=== PATIENT | male | born 2000 | race Caucasian/White ===

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

== ENCOUNTER 2024-11-12 10:59 | Outpatient (CLI) | payer BC, SELFPAY ==
--- NOTE | 2024-11-12 11:02 | XR_ITS ---
FINAL REPORT CLINICAL HISTORY: pain FINDINGS: Two views of the right hand were obtained. There is no prior exam for comparison. There is no acute fracture or dislocation. The joint spaces are well preserved. There is no acute soft tissue abnormality. IMPRESSION: No acute abnormality identified. Reviewed, Interpreted and Dictated by Ronak Doss MD Transcribed by Clarisse Mack Authenticated and [facility]
--- NOTE | 2024-11-12 11:02 | XR_ITS ---
FINAL REPORT CLINICAL HISTORY: R wrist pain COMPARISON: None FINDINGS: RIGHT WRIST Three views demonstrate no acute fracture or dislocation. The visualized joint spaces are normally aligned. The soft tissues are unremarkable. IMPRESSION: No acute bony abnormality. Reviewed, Interpreted and Dictated by Ronak Doss MD Transcribed by Clarisse Mack Authenticated and . [facility]
--- OUTSIDE RECORDS SUMMARY | 2024-11-12 11:02 | XMS_ITS | Clinical Summary ---
Author Organization [facility] Address [address] [place] [address] Care Team Providers Care Jinriksha Driver Name Role Phone HenryJuli KARLEY Primary Care Provider Social History Tobacco Use Types Packs/Day Years Used Date Smoking Tobacco: Never Assessed Abuse Screen Answer Date Recorded Unsafe at Home or Work/School Not on file Feels Threatened by Someone? Not on file 11/2022 Does Anyone Keep You from Co ntacting Others or Doint Things Outside the Home? Not on file 01/03/2023 Physical Sign of Abuse Present Not on file 1 Housing Stability Answer Date Recorded Current Living Arrangements Not on file 11/2022 Potentially Unsafe Housing Conditions Not on lidya e 01/03/2023 Family and Community Support Answer Dong e Recorded Help with Day-to-Day Activities Not on file 01/03/2023 Lonely or Isolated Not on file 01/03/2023 Employment Answer Date Recorded Do you want help finding or keeping work or a segun b? Not on file 01/03/2023 Disabilities Answer Date Recorded Concentrating, Remembering, or Making Decisions Difficulty Not on file 01/03/2023 Doing Errands Independently Difficulty Not on fi le 01/03/2023 Education Answer Date Recorded Help with school or training? Not on file Preferred Language Not on file 01/03/2023 Sex and Gender Information Value Date Recorded Sex Assigned at Not on file Legal Sex Male 12:02 PM EDT Gender Identity Not on file Sexual Orientation Not on file Plan of Treatment Health Maintenance Due Date Last Done Comments ANNUAL PHYSICAL 2002 HEPATITIS C SCREENING 2002 MENINGOCOCCAL B VACCINE (1 o f 2 - Standard) 2018 TDAP/TD VACCINES (1 - Tdap) 2021 COVID-19 Vaccine (2023-2 5 season) 2023 INFLUENZA VACCINE 12/26/2024 MENINGOCOCCAL VACCINE Aged Out No denise ly eligible based on patient's age to complete this topic Pneumococcal Vaccine 0-49 Aged Out No longer eligible based on patient's age to complete this topic Insurance PPO Care Teams Jinriksha Driver Relationship Specialty Start Date End Date Juli Henry APRN [address] [place] [address] PCP - General Family Medicine 04/20/16
--- OUTSIDE RECORDS SUMMARY | 2024-11-12 11:02 | XMS_ITS | Clinical Summary ---
Author Organization Healthcare Address [address] [place] [address] Care Team Providers Care Retread Operator Name Role Phone Pcp, No Primary Care Provider Unavailabl e Allergies No known active allergies Medications * This document contains information received from the source organization and may not represent a complete record from that organization. promethazine (Phenergan) 25 MG tablet Take 1 tablet (25 mg) by mouth every 6 (six) hours if needed for nausea or vomiting. 30 tablet 07/05/2023 Active Immunizations Immunization Administration Dates Next Due DTaP 08/31/2006, 4,02/25/2003,12/24,2002 HPV 9-Valent 04/14/2017 HPV, Quadrivalent 12/09/2016,10/08/2016 Hep A, ped/adol, 2 dose 04/19/2018,10/13/2017 Hep B, Adolescent or Pediatric 02/25/2003,2002,2002 HepB-CpG 04/04/2023 HiB, unspecified 09/01/2003, 3,2002,10/22 IPV 08/31/2006, 4,02/25/2003,12/24,2002 Influenza, injectable, quadr ivalent, preservative free 04/04/2023,01/03/2019,01/26/2018,01/04,01/26/2016 Influenza, seasonal, injectable 01/03/2015 Shilpi COVID-19 Vaccine (Bl ue Cap) 18+ 11/06/2020 MMR 08/31/2006,08/27/2003 Meningococcal MCV4O 10/23/2018 Meningococcal MCV4P 10/01/2013 Pfizer-[employer] COVID-19 Vac cine (Fernandez Cap) 12+ years (michel-sucrose) 05/11/2021 TD (adult), 2 Lf tetanus tox oid, preservative free, adsorbed 10/23/2018 Tdap 04/04/2023,10/01/2013 Varicella 10/01/2013,08/27/2003 Social History Tobacco Use Types Packs/Day Years Used Date Smoking Tobacco: Never Smokeless Tobacco: Never Tobacco Cessation:Counseling Given: Not Answered Sex and Gender Information Value Date Recorded Sex Assigned at Not on file Legal Sex Male 6:23 PM EDT Gender Identity Not on file Sexual Orientation Not on file Last Filed Vital Signs Vital Sign Reading Time Taken Comments Blood Pressure 115/81 07/05/2023 1:01 PM EDT Pulse 78 07/05/2023 1:01 PM EDT Temperature 36.8 C (98.3 F) 07/05/2023 1:01 PM EDT Respiratory Rate 12 05/22/2020 11:23 AM EST Oxygen Saturation 98% 07/05/2023 1:01 PM EDT Inhaled Oxygen Concentration - - Weight 159 kg (350 lb) 07/05/2023 1:01 PM EDT Height 190.5 cm (6' 3 ) 07/05/2023 1:01 PM EDT Body Mass Index 43.75 07/05/2023 1:01 PM EDT Plan of Treatment Health Maintenance Due Date Last Done Comments [facility]-Depression Screening 2002 [facility]-HIV Screening 2002 [facility]-Hepatitis C Screening 2002 [facility]-/Child/Adol SDOH Screenings 2002 [facility]- SDOH Screenings 2020 [facility]-Adult SDOH Screenings 2020 [id number] Vaccine ( season) 2023 05/11/2021, 11/06/2020 [facility]-Influenza Vaccine (#1) 11/26/202404/04, 01/03/2019, 01/26/2018, Additional history exists [facility]-DTaP,Tdap,and Td Vaccines (9 - Td or Tdap) 04/04/2033 04/04/2023, 10/23/2018, 10/01/2013, Additional history exists [facility]-Zoster Vaccines (1 of 2) 2052 10/01/2013, 08/27/2003 [facility]-HIB Vaccines Completed 09/01/2003, 03/2002, 2002, Additional history exists [facility]-IPV Vaccines Completed 08/31/2006, 08/2003, 02/25/2003, Additional history exists [facility]-Varicella Vaccines Completed 10/01/2013, 2003 HPV Vaccines Completed 04/14/2017, 11/26, 10/08/2016 [facility]-Hepatitis A Vaccines Completed 04/19/2018, 09/25 [facility]-Hepatitis B Vaccines Completed 024, 02/25/2003, 2002, Additional history exists [facility]-Obesity Intervention Completed 024, 05/10/2023, 04/04/2023 [facility]-Pneumococcal Vaccine: Pediatrics (0 to 5 Years) and At-Risk Patients (6 to 49 Years) Aged Out No longer eligible based on patient's age to complete this topic [facility]-Rotavirus Vaccines Aged Out No lo nger eligible based on patient's age to complete this topic Insurance RAKESH Care Teams Retread Operator Relationship Specialty Start Date End Date Pcp, [place] [address] PCP - General Family Medicine 11/07/23
== END 2024-11-12 23:59 | disposition home or self-care (01) ==
LOC: RAD 11:00
PROVIDERS: Visit Provider Student in an Organized Health Care Education/Training Program
DX: M25.531 Pain in right wrist (principal)
CPT/HCPCS: 73110; 73120